=== PATIENT | female | born 1950 | race Caucasian/White ===

== ENCOUNTER 2021-12-02 19:26 | Observation (INO) | payer MEDICARE ==
[~2021-12-02] VITALS: Ht 170.2 cm; Wt 81.2 kg
[2021-12-02] VITALS (13 sets, daily range): BP systolic 101–129; BP diastolic 39–57
[2021-12-02] MEDS ORDERED: OMEPRAZOLE DR40 MG PO (20:50)
[2021-12-02] MEDS ORDERED: FLUOXETINE20 MG PO (20:50)
[2021-12-02] MEDS ORDERED: LISINOP/HCTZ1 TA1 PO (20:51)
[2021-12-02] MEDS ORDERED: ATORVASTATIN CA20 MG PO (20:51)
[2021-12-02] MEDS ORDERED: [UNRECOGNIZED DRUG - OTHER] (20:52)
[2021-12-02] MEDS ORDERED: ASPIRIN81 MG PO (20:52)
[2021-12-02] MEDS ORDERED: VITAMIN D-31000 UNIT PO (20:54)
[2021-12-02] MEDS ORDERED: VITAMIN B-12500 MCG PO (20:55)
[2021-12-02] MEDS ORDERED: TRIAMCINOLON0.11 EX (20:56)
[2021-12-02] MEDS ORDERED: TREMFYA IM (20:57)
[2021-12-02 21:12] LABS: HEMATOCRIT 42.9 % (37.0-47.0); HEMOGLOBIN 13.6 g/dl (12.0-16.0); IMMATURE GRANULOCYTES 0.2 % (0.0-5.0); MEAN CELL VOLUME 98.8 fL CALC (80.0-100.0); MEAN CORPUSCULAR HGB 31.3 pG CALC (26.0-32.0); MEAN CORPUSCULAR HGB CONC 31.7 g/dL CAL (32.0-36.0); NEUT# 5.99 thou/uL (2.00-7.15); RED BLOOD COUNT 4.34 mill/uL (4.20-5.60); RED CELL DISTRI WIDTH 14.8 % (11.5-15.5)
[2021-12-02 21:25] LABS: ALBUMIN 3.9 g/dL (3.2-5.0); ALKALINE PHOSPHATASE 76 u/l (38-126); AMYLASE 50 u/l (30-110); ANION GAP 18 (6-22 (CALC)); BILIRUBIN, TOTAL 0.6 mg/dL (0.0-1.4); BUN 65 mg/dL (8-23); BUN/CREATININE RATIO 26 (12-20 (CALC)); CARBON DIOXIDE 11 mmol/l (22-30); CHLORIDE 106 mmol/l (95-108); CREATININE 2.5 mg/dL (0.5-1.0); GFR 19 ML/MIN (>=60 (CALC)); GFR FOR AFR.AMER. 23 ML/MIN (>=60 (CALC)); LIPASE 81 u/l (23-300); MAGNESIUM 2.4 mg/dL (1.6-2.3); POTASSIUM 3.2 mmol/l (3.5-5.1); SGOT/AST 22 u/l (9-36); SODIUM 132 mmol/l (137-146); TOTAL PROTEIN 6.9 g/dL (6.3-8.2)
[2021-12-02 21:29] LABS: ACT PARTIAL THROMBO TIME 22.7 SECONDS (20.0-32.5); INTERNATIONAL NORMALIZED RATIO 0.9 RATIO (0.7-1.3); PROTHROMBIN TIME 9.9 SECONDS (9.0-12.5)
[2021-12-02 23:05] LABS: URINE BILIRUBIN - DIPSTICK NEGATIVE (NEGATIVE); URINE BLOOD DIPSTICK NEGATIVE (NEGATIVE); URINE COLOR YELLOW; URINE GLUCOSE - DIPSTICK NEGATIVE (NEGATIVE); URINE KETONE NEGATIVE (NEGATIVE); URINE PROTEIN - DIPSTICK NEGATIVE (NEG-TRACE); URINE UROBILINOGEN - DIPSTICK 0.2 E.U./dL (0.2)
[2021-12-02 23:08] LABS: URINE LEUK ESTERASE MODERATE (NEGATIVE); URINE NITRITE - DIPSTICK NEGATIVE (Negative)
[2021-12-02 23:14] LABS: URINE RBC 0-2 RBC/hpf (0-5); URINE SQUAMOUS EPITHELIAL CELL FEW EPI/hpf (0-FEW)
[2021-12-03] VITALS (9 sets, daily range): BP systolic 91–118; BP diastolic 35–67
[2021-12-03 05:10] LABS: HEMATOCRIT 37.6 % (37.0-47.0); HEMOGLOBIN 11.8 g/dl (12.0-16.0); IMMATURE GRANULOCYTES 0.5 % (0.0-5.0); MEAN CELL VOLUME 98.9 fL CALC (80.0-100.0); MEAN CORPUSCULAR HGB 31.1 pG CALC (26.0-32.0); MEAN CORPUSCULAR HGB CONC 31.4 g/dL CAL (32.0-36.0); NEUT# 3.54 thou/uL (2.00-7.15); RED BLOOD COUNT 3.8 mill/uL (4.20-5.60); RED CELL DISTRI WIDTH 14.6 % (11.5-15.5)
[2021-12-03 05:38] LABS: CREATININE 2.1 mg/dL (0.5-1.0); POTASSIUM 3.4 mmol/l (3.5-5.1); TOTAL PROTEIN 5.8 g/dL (6.3-8.2)
[2021-12-03 05:50] LABS: ALBUMIN 3.1 g/dL (3.2-5.0); BILIRUBIN, TOTAL 0.2 mg/dL (0.0-1.4)
[2021-12-04] VITALS: BP 101/42
[2021-12-04 02:49] VITALS: BP 107/45
[2021-12-04 06:00] LABS: CREATININE 1.4 mg/dL (0.5-1.0); MAGNESIUM 2.3 mg/dL (1.6-2.3); POTASSIUM 2.8 mmol/l (3.5-5.1)
[2021-12-04 10:40] VITALS: BP 112/47
[2021-12-04 15:00] VITALS: BP 139/58
[2021-12-04 19:00] VITALS: BP 107/54
[2021-12-04 23:12] VITALS: BP 121/48
[2021-12-05 02:52] VITALS: BP 114/44
[2021-12-05 06:05] LABS: CREATININE 1.1 mg/dL (0.5-1.0); MAGNESIUM 2.2 mg/dL (1.6-2.3)
[2021-12-05 06:07] LABS: POTASSIUM 3.2 mmol/l (3.5-5.1)
[2021-12-05 08:05] VITALS: BP 106/52
[2021-12-05 13:26] LABS: ANION GAP 13 (6-22 (CALC)); BUN 41 mg/dL (8-23); BUN/CREATININE RATIO 42 (12-20 (CALC)); CARBON DIOXIDE 16 mmol/l (22-30); CHLORIDE 111 mmol/l (95-108); GFR 55 ML/MIN (>=60 (CALC)); GFR FOR AFR.AMER. > 60 ML/MIN (>=60 (CALC)); SODIUM 137 mmol/l (137-146)
[2021-12-05 14:10] VITALS: BP 100/57
[2021-12-05 17:41] VITALS: BP 144/53
[2021-12-05 23:09] VITALS: BP 133/48
[2021-12-06 03:04] VITALS: BP 130/62
[2021-12-06 06:50] LABS: ANION GAP 13 (6-22 (CALC)); BUN 35 mg/dL (8-23); BUN/CREATININE RATIO 43 (12-20 (CALC)); CARBON DIOXIDE 15 mmol/l (22-30); CHLORIDE 113 mmol/l (95-108); CREATININE 0.8 mg/dL (0.5-1.0); GFR > 60 ML/MIN (>=60 (CALC)); GFR FOR AFR.AMER. > 60 ML/MIN (>=60 (CALC)); POTASSIUM 3.3 mmol/l (3.5-5.1); SODIUM 137 mmol/l (137-146)
[2021-12-06 08:19] VITALS: BP 115/52
[2021-12-06 09:20] VITALS: BP 122/60
[2021-12-06 11:21] VITALS: BP 122/60
[2021-12-06] MEDS ORDERED: QUESTRAN4 GM/DOSE PO (11:46)
[2021-12-06] MEDS ORDERED: KLOR-CON M2020 MEQ PO (11:47)
== END 2021-12-06 13:50 | disposition home or self-care (01) ==
LOC: ED 19:26 → ED-I 21:25 → ED 21:25 → ED-I 23:05 → ED 23:25 → MS2 23:26
PROVIDERS: ADMIT Internal Medicine; ATTEND Internal Medicine
DX: N17.9 Acute kidney failure, unspecified (principal); E86.0 Dehydration; E87.6 Hypokalemia; K52.9 Noninfective gastroenteritis and colitis, unspecified; E87.2 Acidosis; R82.71 Bacteriuria; I10 Essential (primary) hypertension; K21.9 Gastro-esophageal reflux disease without esophagitis; F32.A Depression, unspecified; E78.5 Hyperlipidemia, unspecified; Z98.84 Bariatric surgery status; Z20.822 Contact with and (suspected) exposure to COVID-19
CPT/HCPCS: Q3014